=== PATIENT | female | born 1975 | race Caucasian/White ===

== ENCOUNTER 2024-04-25 15:53 | Emergency (ER) | payer BC, SELFPAY ==
[2024-04-25 15:57] VITALS: BP 127/95
--- NOTE | 2024-04-25 16:16 | ED.GENMED ---
History of Present Illness
General
Chief Complaint: Swelling
Time Seen by Provider: 04/25/24 16:16
History of Present Illness
History of Present Illness:
TIME OF INITIAL ENCOUNTER: 4:20 PM
HPI: Patient presents due to concerns of left lower extremity swelling. This been ongoing for the past 4 months. She was in orthopedic the office today for right knee pain and when she mentioned to them about the left calf pain, they wanted her to
come to the emergency department for further evaluation.
EXAM:
GENERAL: Well appearing in no distress
HEENT: Moist oral mucosa
CARDIOVASCULAR: No murmurs, normal heart rate, regular rhythm, No chest wall tenderness
PULMONARY: No respiratory distress, breath sounds are clear and equal
ABDOMEN: Soft with no peritoneal signs, no tenderness
NEUROLOGIC: Excellent strength all extremities, no coordination deficits
PSYCHIATRIC: Appropriate mental status, normal insight and judgement
EXTREMITIES: There is very minimal tenderness but the left calf musculature is slightly tense in comparison to the other side, there is no evidence of cellulitis
SKIN: No rash, no lesions
NUMBER AND COMPLEXITY OF PROBLEMS ADDRESSED AT THE ENCOUNTER
� Chronic conditions affecting care: Has had knee surgery in the past
� Acute Exacerbation and/or Progression of Chronic Illness: This is a subacute problem
� Differential Diagnosis includes: Muscle strain, DVT, gastrocnemius tear, Adair's cyst
AMOUNT AND/OR COMPLEXITY OF DATA TO BE REVIEWED AND ANALYZED
� I performed an independent evaluation of and my interpretation is:
EKG:
CT:
X-rays:
Laboratory Studies:
Other: Ultrasound imaging shows no DVT
� Review of other/old records: No old [facility] available [facility]
� Clinical information was obtained by an independent historian: None needed
� Prescriptions/Medications Considered but not given:
� Further testing considered but not performed:
RISK OF COMPLICATIONS AND/OR MORBIDITY OR MORTALITY OF PATIENT MANAGEMENT
� Social determinants of health affecting care: Lives at home
� Discussion with other providers:
� Escalation of care including admission/observation vs risk of discharge considered: I evaluated patient after she came back from ultrasound. Ultrasound imaging reviewed and is negative. No evidence for any other concerns on
physical examination. Recommended NSAIDs.
ANY OTHER UPDATES:
Phy Exam
Physical Exam
Physical Exam:
See HPI
Scores
Heart Failure Risk
Heart Failure Risk Score: Not Applicable
Course
Orders/Labs/Results
Orders:
Orders
04/25/24 15:55
US Periph Venous LOWER Ext LT Urgent
Comment: swelling since december 2023.
Reason For Exam: swelling
Vital Signs
Initial and Last Documented VS:
Initial Vital Signs
Temp Pulse Resp BP Pulse Ox
98.5 F 94 16 127/95 96
04/25/24 15:57 04/25/24 15:57 04/25/24 15:57 04/25/24 15:57 04/25/24 15:57
Last Documented Vital Signs
Temp Pulse Resp BP Pulse Ox
98.5 F 94 16 127/95 96
04/25/24 15:57 04/25/24 15:57 04/25/24 15:57 04/25/24 15:57 04/25/24 15:57
*Critical Care Note
Total Time (30-74mins, 75-104mins- exclusive of procedures): Not Applicable
ED Attending Note
-
Portions of this chart may have been created with voice recognition software.� Occasional wrong word or��sound alike� substitutions may have occurred due to the inherent limitations of voice recognition software.
Discharge Plan
Departure
Patient Disposition: Home (Routine Discharge)
Date of Disposition: 04/25/24
Time of Disposition: 17:15
Patient with high blood pressure during this ER visit?: Yes
Discharge Problem:
Strain of left calf muscle
Instructions: Lower Extremity Muscle Strain (DC)
Activity Restrictions/Additional Instructions:
The ultrasound shows no sign of blood clot. Please follow-up with your primary care doctor. I recommend 3-4 [id number] ibuprofen (Motrin) every 8 hours with food for a few days. Return here if worse.
Interventions
Interventions:
*Risk Screen - Suicide Last Done: 04/25/24 15:54
*Neglect/Abuse Screening Last Done: 04/25/24 15:54
Discharge Date and Time
Print Language: ITALIAN
== END 2024-04-25 18:09 | disposition home or self-care (01) ==
LOC: EMR 15:53
PROVIDERS: EMERGENCY PHYSICIAN Emergency Medicine; FAMILY PHYSICIAN Family Medicine
DX: S86.112A Strain of other muscle(s) and tendon(s) of posterior muscle group at lower leg level, left leg, initial encounter (principal); M79.89 Other specified soft tissue disorders; M79.662 Pain in left lower leg; M25.561 Pain in right knee; X58.XXXA Exposure to other specified factors, initial encounter; R03.0 Elevated blood-pressure reading, without diagnosis of hypertension
CPT/HCPCS: 99284; 93971